=== PATIENT | female | born 1960 | race Caucasian/White ===

== ENCOUNTER 2022-03-30 21:44 | Emergency (ER) | payer OTHER ==
[~2022-03-30] VITALS: Ht 170.2 cm; Wt 95.5 kg
[2022-03-30 22:04] VITALS: BP 132/75
--- NOTE | 2022-03-30 23:09 | NUR ---
PT. SLID DOWN THE GURNEY, OUT THE FOOT OF THE GURNEY. PICKED UP HER PLASTIC BAG OFF THE BEDSIDE CART AND AMBULATED DOWN THE EDUARDO TO THE AMBULANCE DOORS
== END 2022-03-30 23:16 | disposition left against medical advice (07) ==
LOC: ER 21:44
DX: R10.9 Unspecified abdominal pain (principal); Z53.21 Procedure and treatment not carried out due to patient leaving prior to being seen by health care provider